=== PATIENT | male | born 1965 | race Caucasian/White ===

== ENCOUNTER → 2023-08-10 14:14 | Outpatient (REF) | payer OTHER, SELFPAY | LOC: HWRAD 14:14 | PROVIDERS: ATTENDING PHYSICIAN Internal Medicine Critical Care Medicine; FAMILY PHYSICIAN Internal Medicine | DX: Z87.891 Personal history of nicotine dependence (principal); R91.8 Other nonspecific abnormal finding of lung field | CPT/HCPCS: 71250 ==

== ENCOUNTER 2023-10-12 08:07 | Emergency (ER) | payer OTHER, SELFPAY ==
[2023-10-12 08:12] VITALS: BP 166/86
--- NOTE | 2023-10-12 08:26 | ED.GENMED ---
History of Present Illness
General
Chief Complaint: Abdominal Pain
Source: patient
Exam Limitations: none
Time Seen by Provider: 10/12/23 08:26
Nursing documentation reviewed up to this point in time: agreed with
History of Present Illness
History of Present Illness:
58-year-old male with history of COPD, CAD, HTN, HLD, PUD, IDDM, cardiac cath 2018, bypass surgery 2019 presents stating since yesterday afternoon has had gradually worsening epigastric to RUQ pain, nausea, vomited 3 times then dry heaves 10 minutes
ago. Pain 7/10, sharp to aching. Denies fever or chills. Denies constipation. Denies UTI symptoms. On Eliquis, notes no change in color of stool
Past History
Past History
ED Past Medical History: Hypercholesterolemia, IDDM and Other (History of pneumonia, PUD)
ED Past Surgical History: Cardiac (CABG) and Other (Patient has a history of having had a colonoscopy)
Social History
Tobacco: Former smoker (Occasional cigar)
Alcohol: Occasional
Drug: None
Personal:
Living: with family
Employment: Employed
Family History
Family History: Negative Early CAD
Review of Systems
Review of Systems
Allergies reviewed?: Yes
All Other Systems: ROS reviewed and negative except as documented in HPI and ROS
Constitutional: Denies fever or chills
Respiratory: Denies trouble breathing
Cardiac: Denies chest pain
ABD/GI: Reports abdominal pain, nausea and vomiting; Denies diarrhea, constipated, bloody stools or black stools
: Denies dysuria or difficulty voiding
Musculoskeletal: Reports no symptoms
Skin: Reports no symptoms
Neurological: Reports no symptoms
Phy Exam
Physical Exam
Physical Exam:
GENERAL: No acute distress. A&Ox3.
CONSTITUTIONAL: Afebrile.
EYES: clear, conjunctivae normal
ENMT: moist mucus membranes, Pharynx nl
RESPIRATORY: Regular respirations, nonlabored, lungs clear.
CARDIOVASCULAR: Regular rate and rhythm, no murmurs, no rubs.
GI: Soft, rotund, mild tenderness epigastric to RUQ, normal BS
MUSCULOSKELETAL: Moves with ease. Well perfused.
SKIN: Warm, dry, pink
PSYCH: Normal mood and affect. Well kept, interactive and appropriate
NEUROLOGIC: Awake, alert and oriented. No focal neurological deficits
Course
Orders/Labs/Results
Orders:
Orders
10/12/23 08:10
EKG [Electrocardiogram (*1)] Urgent
Reason for Study: Chest Pain
10/12/23 08:11
EKG- Treatment ONCE
10/12/23 08:51
HYDROmorphone [Dilaudid] 1 mg IV NOW STA
Ondansetron Injectable [Zofran] 4 mg IV NOW STA
10/12/23 08:52
US Abdomen Complete/Upper Urgent
Comment:
Reason For Exam: Mid to RUQ abd pain, n/v
10/12/23 08:53
0.9% Sodium Chloride 1000 ml [Nss] 1,000 ml IV BOLUS
10/12/23 09:03
Complete Blood Count/With Diff Urgent
Comprehensive Metabolic Panel Urgent
Lipase Urgent
10/12/23 10:08
CT Abd/Pel (IV only)-DH only Urgent
Comment:
Reason For Exam: mid to RUQ abd pain, neg US
Abnormal Lab Results
10/12/23
09:03
MCH 31.9 H pg
(27.0-31.0)
Glucose 143 H mg/dl
(70-99)
ALT 61 H U/L
(0-50)
10/12/23 09:03
10/12/23 09:03
Vital Signs
Initial and Last Documented VS:
Initial Vital Signs
Temp Pulse Resp BP Pulse Ox
97.5 F 67 18 166/86 96
10/12/23 08:12 10/12/23 08:12 10/12/23 08:12 10/12/23 08:12 10/12/23 08:12
Last Documented Vital Signs
Temp Pulse Resp BP Pulse Ox
97.5 F 61 16 134/60 93
10/12/23 08:12 10/12/23 11:15 10/12/23 11:15 10/12/23 11:00 10/12/23 11:15
MDM/Problems Addressed
Differential Diagnosis Includes:
PUD, GERD, gastritis, cholecystitis, biliary colic
MDM/Problems Addressed:
58-year-old male with history of COPD, CAD, HTN, HLD, PUD, IDDM, cardiac cath 2018, bypass surgery 2019 presents stating since yesterday afternoon has had gradually worsening epigastric to RUQ pain, nausea, vomited 3 times then dry heaves 10 minutes
ago. Pain 7/10, sharp to aching. Denies fever or chills. Denies constipation. Denies UTI symptoms.
On Eliquis, notes no change in color of stool
10:45 AM
CBC normal
CMP unremarkable
Lipase normal
Upper abdominal ultrasound radiology report read: Normal
11:15 AM
Patient is pain-free after pain medications and IV fluids.
CT abdomen pelvis with IV only contrast: Radiology report read: IMPRESSION:
1). Evaluation for bowel pathology is limited by the lack of enteric contrast
There is mild low-density bowel wall thickening in the transverse colon suggesting possible colitis
There are no areas of pericolonic inflammatory stranding.
2). Atherosclerosis
Plan: treat for colitis: Augmentin 875 mg BID sent to his pharmacy
He stopped his Omeprazole 'a while ago' and just started it up again yesterday.
Instructed to continue to take it daily
He has a GI doctor here at he will follow up with
Pt ambulated out with normal gait at discharge
*EKG
EKG Intrepretation Date: 10/12/23
Interpretation: normal
Rate: normal
Rhythm: sinus
[place]: normal axis
Interval: normal interval
QRS Pattern: normal QRS
Ischemia: non-specific ST changes
*Critical Care Note
Total Time (30-74mins, 75-104mins- exclusive of procedures): Not Applicable
ED Attending Note
-
Portions of this chart may have been created with voice recognition software.� Occasional wrong word or��sound alike� substitutions may have occurred due to the inherent limitations of voice recognition software.
Discharge Plan
Departure
Patient Disposition: Home (Routine Discharge)
Date of Disposition: 10/12/23
Time of Disposition: 11:21
Patient with high blood pressure during this ER visit?: No
Condition: Good
Discharge Problem:
Abdominal pain, Colitis
Instructions: Colitis, Abdominal Pain
Prescriptions:
New
amoxicillin-pot clavulanate 875-125 mg tablet
1 tab PO BID Qty: 20 0RF
tramadol 50 mg tablet
50 mg PO Q8H PRN (Reason: Pain) Qty: 7 0RF
No Action
omeprazole 20 MG capsule,delayed release(DR/EC)
20 mg PO DAILY
metformin 500 MG tablet
1,000 mg PO BID
Eliquis 5 mg tablet
5 mg PO BID Qty: 60 0RF
metoprolol tartrate [Lopressor] 50 mg tablet
50 mg PO BID Qty: 60 0RF
ascorbic acid (vitamin C) [Vitamin C] 1,000 mg Tablet
1 g PO TID
ramipril 10 mg Capsule
10 mg PO NOON
ezetimibe 10 mg Tablet
10 mg PO NOON
insulin aspart U-100 [Novolog FlexPen U-100 Insulin] 100 unit/mL (3 mL) Insulin Pen
0 sliding scale dose SC AC
Patient Comments:
10/12/23: patient unsure of sliding scale
rosuvastatin 40 mg Tablet
40 mg PO HS
insulin glargine [Lantus Solostar U-100 Insulin] 100 unit/mL (3 mL) Insulin Pen
25 unit SC HS
omega 8-hmo-nki-fish oil [Fish Oil] 1,200 (144-216) mg Capsule
2 cap PO BID
Anoro Ellipta 62.5-25 mcg/actuation Blister With Device
1 inh INHALATION R DAILY
Vitamin D3 tablet
1 tab PO TID
acetaminophen 325 MG tablet
650 mg PO BIDPRN PRN (Reason: mild pain,headache,temp >101F )
Referrals:
Olman Teresa I., [Family Provider] -
Olman Villalobos MD [Active] -
Activity Restrictions/Additional Instructions:
As we discussed, your CAT scan shows that you have colitis
I sent a prescription to your pharmacy for Augmentin to take twice a day for 10 days
Call your GI doctors office and make an appointment for sometime within the next 2 weeks.
Continue your Omeprazole daily.
Use your Tramadol if needed for significant pain.
Interventions
Interventions:
*Risk Screen - Suicide Last Done: 10/12/23 08:56
*General Assessment Last Done: 10/12/23 08:12
*Neglect/Abuse Screening Last Done: 10/12/23 08:56
ED- Fall Risk Assessment Last Done: 10/12/23 09:13
*ED COVID-19 Vaccine History Last Done: 10/12/23 08:12
*Nursing Disposition Last Done: 10/12/23 11:52
JM-Ugaayk-Jqhfenvkkw Assessment Last Done: 10/12/23 09:13
Discharge Date and Time
Discharge Date/Time: 10/12/23 11:52
Print Language: FRISIAN
[2023-10-12 08:55] VITALS: BMI 31.2
[2023-10-12 08:58] VITALS: BP 189/74
[2023-10-12] MEDS: NSS 1000 IV (09:04)
[2023-10-12] MEDS: DILAUDID 1 MG IV (09:05)
[2023-10-12] MEDS: ZOFRAN 4 MG IV (09:05)
[2023-10-12 09:17] LABS: % Basophils 0.6 % (0-2); % Immature Granulocytes 0.1 % (0-0.5); % Lymphocytes 25.1 % (20.5-51.1); % Monocytes 6.9 % (1.7-9.3); % Neutrophils 65.3 % (42.2-75.2); Absolute Eosinophils 0.1 10^3/uL (0-0.7); Absolute Lymphocytes 1.7 10^3/uL (1.2-3.4); Absolute Monocytes 0.5 10^3/uL (0.1-0.6); Absolute Neutrophils 4.5 10^3/uL (1.4-6.5); Hematocrit 41.4 % (39.0-52.0); Mean Corp Hgb Conc. 36.2 g/dL (33.0-37.0); Mean Corpuscular Hgb 31.9 pg (27.0-31.0); Mean Corpuscular Volume 88.1 fL (80.0-94.0); Mean Platelet Volume 8.8 fL (7.4-10.4); Nucleated Red Blood Cells % 0 % (-); Platelet Count 213 10^3/uL (130-400); Red Cell Dist. Width 11.7 % (11.5-14.5); White Blood Cell Count 6.9 10^3/uL (4.8-10.8)
[2023-10-12 09:40] LABS: ALT (SGPT) 61 U/L (0-50); AST (SGOT) 38 U/L (17-59); Albumin 4.4 g/dl (3.5-5.0); Alkaline Phosphatase 60 U/L (38-126); Blood Urea Nitrogen 19 mg/dl (9-20); Calcium 9.3 mg/dl (8.4-10.2); Carbon Dioxide 24 mmol/L (22-30); Chloride 105 mmol/L (98-107); Estimated Creatinine Clearance 120 ml/min; Glucose 143 mg/dl (70-99); Lipase 63 U/L (23-300); Potassium 4.7 mmol/L (3.5-5.1); Sodium 139 mmol/L (135-145); Total Bilirubin 0.7 mg/dl (0.2-1.3); Total Protein 6.8 g/dl (6.3-8.2); eGFR > 60.00
[2023-10-12 10:02] VITALS: BP 123/51
[2023-10-12 11:00] VITALS: BP 134/60
== END 2023-10-12 11:52 | disposition home or self-care (01) ==
LOC: EMR 08:07
PROVIDERS: Registered Nurse; EMERGENCY PHYSICIAN Emergency Medicine; FAMILY PHYSICIAN Internal Medicine
DX: R10.11 Right upper quadrant pain (principal); K52.9 Noninfective gastroenteritis and colitis, unspecified
CPT/HCPCS: 99285; 96374; 96375; 96361; 74177; 76700; 80053; 83690; 85025; 93005; Q9967

== ENCOUNTER 2023-10-16 19:59 | Observation (INO) | payer OTHER, SELFPAY ==
[2023-10-16] VITALS (14 sets, daily range): BP systolic 109–193; BP diastolic 44–86; BMI 30.5
[2023-10-16 11:20] LABS: % Basophils 0.6 % (0-2); % Eosinophils 2.5 % (0-6); % Immature Granulocytes 0.3 % (0-0.5); % Lymphocytes 25.7 % (20.5-51.1); % Monocytes 7.3 % (1.7-9.3); % Neutrophils 63.6 % (42.2-75.2); Absolute Eosinophils 0.2 10^3/uL (0-0.7); Absolute Lymphocytes 1.6 10^3/uL (1.2-3.4); Absolute Monocytes 0.5 10^3/uL (0.1-0.6); Hematocrit 41.9 % (39.0-52.0); Hemoglobin 15.2 g/dL (13.0-18.0); Mean Corp Hgb Conc. 36.3 g/dL (33.0-37.0); Mean Corpuscular Hgb 31.7 pg (27.0-31.0); Mean Corpuscular Volume 87.3 fL (80.0-94.0); Mean Platelet Volume 8.8 fL (7.4-10.4); Nucleated Red Blood Cells % 0 % (-); Platelet Count 223 10^3/uL (130-400); Red Cell Dist. Width 11.8 % (11.5-14.5); White Blood Cell Count 6.3 10^3/uL (4.8-10.8)
[2023-10-16 11:40] LABS: Troponin I < 0.012 ng/ml
[2023-10-16 11:50] LABS: ALT (SGPT) 54 U/L (0-50); AST (SGOT) 40 U/L (17-59); Albumin 4.6 g/dl (3.5-5.0); Alkaline Phosphatase 67 U/L (38-126); Blood Urea Nitrogen 18 mg/dl (9-20); Calcium 9.8 mg/dl (8.4-10.2); Carbon Dioxide 21 mmol/L (22-30); Chloride 103 mmol/L (98-107); Glucose 143 mg/dl (70-99); Lipase 72 U/L (23-300); Potassium 4.6 mmol/L (3.5-5.1); Sodium 138 mmol/L (135-145); Total Bilirubin 0.7 mg/dl (0.2-1.3); eGFR > 60.00
--- NOTE | 2023-10-16 12:19 | ED.GENMED ---
History of Present Illness
<Radha Wills PA-C - Last Filed: 10/16/23 19:01>
General
Chief Complaint: Chest Pain
Source: patient
Exam Limitations: none
Time Seen by Provider: 10/16/23 11:39
Nursing documentation reviewed up to this point in time: agreed with
History of Present Illness
History of Present Illness:
58-year-old male with a past medical history of insulin-dependent diabetes, COPD, coronary artery disease, hypertension, hyperlipidemia presenting to the emergency department today with epigastric pain and right upper quadrant pain that started this
morning. Patient states that he was seen here in our ER 4 days ago for the same exact symptoms and got a CT scan and right upper quadrant ultrasound and was diagnosed with colitis. He was put on a course of Augmentin. He had been on this for a
few days and started to feel better, however then he took a turn for the worse and states that all symptoms came back very severe today and states that they feel exactly like how they did 4 days ago except now significantly worse. Patient states
that he is so uncomfortable that is hard for him to talk, walk, and he has nausea and vomiting associated with this. Patient denies any constipation or diarrhea. Patient denies chest pain or shortness of breath. Patient he has fevers or chills.
Patient did not try thing at home for the pain since he had so much vomiting. Patient does take Eliquis, he denies melena. He denies any back or flank pain.
Past History
<Radha Wills PA-C - Last Filed: 10/16/23 19:01>
Past History
ED Past Medical History: Hypercholesterolemia, IDDM and Other (History of pneumonia, PUD)
ED Past Surgical History: Cardiac (CABG) and Other (Patient has a history of having had a colonoscopy)
Social History
Tobacco: Former smoker (Occasional cigar)
Alcohol: Occasional
Drug: None
Personal:
Living: with family
Employment: Employed
Family History
Family History: Negative Early CAD
Review of Systems
<Radha Wills PA-C - Last Filed: 10/16/23 19:01>
Review of Systems
All Other Systems: ROS reviewed and negative except as documented in HPI and ROS
Phy Exam
<Radha Wills PA-C - Last Filed: 10/16/23 19:01>
Physical Exam
Physical Exam:
General: Patient is well appearing and in no acute distress; non-toxic
Skin: Warm and dry, no rashes or lesions
Head: Normocephalic, atraumatic
Eyes: Sclera non-icteric. EOMs intact. PERRLA.
Cardiac: Bradycardia otherwise regular rhythm, no murmurs
Peripheral Vascular: No lower extremity swelling or edema
Pulm: Normal respiratory effort, no wheezes, rales, or rhonchi
Abdomen: Significant RUQ tenderness to palpation with guarding. No rebound tenderness. No pulsatile abdominal mass.
Neuro: CN II-XII intact, no focal neurologic deficits.
Psychiatric: Appropriate mood and affect.
Scores
<Radha Wills PA-C - Last Filed: 10/16/23 19:01>
Heart Score for Chest Pain Patients
STEMI patient?: No
History: Slightly or Non-Suspicious
ECG: Normal
Age: >45 - <65 years
Risk Factors: No Risk Factors
Troponin: </= Normal Limit
Heart Score for Chest Pain Patients: 1
Heart Score Risk: 2.5% MACE over next 6 weeks
<Afshin Benz MD - Last Filed: 10/16/23 22:11>
Heart Score for Chest Pain Patients
Heart Score for Chest Pain Patients: 1
Heart Score Risk: 2.5% MACE over next 6 weeks
Course
<Radha Wills PA-C - Last Filed: 10/16/23 19:01>
Orders/Labs/Results
Orders:
Orders
10/16/23 10:55
Electrocardiogram (*1) Urgent
Reason for Study: Chest Pain
EKG- Treatment ONCE
10/16/23 11:01
Complete Blood Count/With Diff Urgent
Comprehensive Metabolic Panel Urgent
Lipase Urgent
Troponin I Urgent
10/16/23 12:29
Ondansetron Injectable [Zofran] 4 mg .ROUTE .STK-MED ONE
10/16/23 12:33
HYDROmorphone [Dilaudid] 0.5 mg IV NOW STA
Iohexol [Omnipaque] See Protocol PO NOW STA
10/16/23 12:34
CT Abd/pel W Iv And Oral Contr Urgent
Comment:
Reason For Exam: severe worsening of RUQ pain, known colitis
10/16/23 13:07
HYDROmorphone [Dilaudid] 0.5 mg IV NOW STA
10/16/23 16:07
US Abdomen Limited Urgent
Comment:
Reason For Exam: RUQ pain
10/16/23 17:57
Acetaminophen [Tylenol] 1,000 mg PO NOW STA
10/16/23 19:34
Admit/Transfer Patient As Directed
Co-Sign Provider:
Level of Care: Observation services
Assign to:: Medical/Surgical
Physician / Group: htay
Diagnosis: acute abdominal pain with N/V
10/16/23 19:35
Code Status As Directed
Resuscitation Status: Full Code
10/16/23 20:10
0.9% Sodium Chloride 1000 ml [Nss] 1,000 ml IV 80 mls/hr
Acetaminophen [Tylenol] 650 mg PO Q4HPRN PRN
Bisacodyl [Dulcolax] 10 mg RECTAL [id number] PRN
Dextrose 50%-Water [Dextrose 50% Syringe] 12.5 grams IV [id number] PRN
Docusate W/Senna [Senokot-S] 1 tablet PO BIDPRN PRN
Glucagon [GlucaGen] 1 mg IM PRN PRN
Ketorolac [Toradol] 10 mg IV Q6HPRN PRN
Ondansetron Injectable [Zofran] 4 mg IV Q6HPRN PRN
Polyethylene Glycol Powder [Miralax] 17 grams PO DAILYPRN PRN
10/16/23 20:10
Activity As Directed
Activity Level: With Assistance
Bedside Glucose Monitoring As Directed
Frequency: AC&HS
Additional Instructions:: Change to q6h if pt on TPN, tube feeding or not eating
Intake/ Output As Directed
Frequency: Per unit guidelines
Pneumatic Compression Sleeves As Directed
Type: Knee high
Vital Signs As Directed
Frequency: Per unit guidelines
DX Deep Vein Thrombosis Video Routine
10/17/23 Breakfast
Clear Liquid
At Your Request: Full Participation
Comment: advance diet as tolerates
Complete Blood Count/No Diff IN AM
Comprehensive Metabolic Panel IN AM
Glycohemoglobin (HgbA1c) IN AM
10/17/23 07:30
Insulin Aspart Corrective Low [Novolog Flexpen-Low Resistance] See Protocol SC AC
Abnormal Lab Results
10/16/23
11:01
MCH 31.7 H pg
(27.0-31.0)
Carbon Dioxide 21 L mmol/L
(22-30)
Glucose 143 H mg/dl
(70-99)
ALT 54 H U/L
(0-50)
10/16/23 11:01
10/16/23 11:01
Vital Signs
Initial and Last Documented VS:
Initial Vital Signs
Temp Pulse Resp BP Pulse Ox
97.8 F 54 18 188/86 97
10/16/23 10:52 10/16/23 10:52 10/16/23 10:52 10/16/23 10:52 10/16/23 10:52
Last Documented Vital Signs
Temp Pulse Resp BP Pulse Ox
98.2 F 61 19 127/59 94
10/16/23 15:52 10/16/23 19:45 10/16/23 19:45 10/16/23 19:00 10/16/23 18:45
<Afshin Benz MD - Last Filed: 10/16/23 22:11>
Orders/Labs/Results
Orders:
Orders
10/16/23 10:55
Electrocardiogram (*1) Urgent
Reason for Study: Chest Pain
EKG- Treatment ONCE
10/16/23 11:01
Complete Blood Count/With Diff Urgent
Comprehensive Metabolic Panel Urgent
Lipase Urgent
Troponin I Urgent
10/16/23 12:29
Ondansetron Injectable [Zofran] 4 mg .ROUTE .STK-MED ONE
10/16/23 12:33
HYDROmorphone [Dilaudid] 0.5 mg IV NOW STA
Iohexol [Omnipaque] See Protocol PO NOW STA
10/16/23 12:34
CT Abd/pel W Iv And Oral Contr Urgent
Comment:
Reason For Exam: severe worsening of RUQ pain, known colitis
10/16/23 13:07
HYDROmorphone [Dilaudid] 0.5 mg IV NOW STA
10/16/23 16:07
US Abdomen Limited Urgent
Comment:
Reason For Exam: RUQ pain
10/16/23 17:57
Acetaminophen [Tylenol] 1,000 mg PO NOW STA
10/16/23 19:34
Admit/Transfer Patient As Directed
Co-Sign Provider:
Level of Care: Observation services
Assign to:: Medical/Surgical
Physician / Group: htay
Diagnosis: acute abdominal pain with N/V
10/16/23 19:35
Code Status As Directed
Resuscitation Status: Full Code
10/16/23 20:10
0.9% Sodium Chloride 1000 ml [Nss] 1,000 ml IV 80 mls/hr
Acetaminophen [Tylenol] 650 mg PO Q4HPRN PRN
Bisacodyl [Dulcolax] 10 mg RECTAL [id number] PRN
Dextrose 50%-Water [Dextrose 50% Syringe] 12.5 grams IV [id number] PRN
Docusate W/Senna [Senokot-S] 1 tablet PO BIDPRN PRN
Glucagon [GlucaGen] 1 mg IM PRN PRN
Ketorolac [Toradol] 10 mg IV Q6HPRN PRN
Ondansetron Injectable [Zofran] 4 mg IV Q6HPRN PRN
Polyethylene Glycol Powder [Miralax] 17 grams PO DAILYPRN PRN
10/16/23 20:10
Activity As Directed
Activity Level: With Assistance
Bedside Glucose Monitoring As Directed
Frequency: AC&HS
Additional Instructions:: Change to q6h if pt on TPN, tube feeding or not eating
Intake/ Output As Directed
Frequency: Per unit guidelines
Pneumatic Compression Sleeves As Directed
Type: Knee high
Vital Signs As Directed
Frequency: Per unit guidelines
DX Deep Vein Thrombosis Video Routine
10/17/23 Breakfast
Clear Liquid
At Your Request: Full Participation
Comment: advance diet as tolerates
Complete Blood Count/No Diff IN AM
Comprehensive Metabolic Panel IN AM
Glycohemoglobin (HgbA1c) IN AM
10/17/23 07:30
Insulin Aspart Corrective Low [Novolog Flexpen-Low Resistance] See Protocol SC AC
Abnormal Lab Results
10/16/23
11:01
MCH 31.7 H pg
(27.0-31.0)
Carbon Dioxide 21 L mmol/L
(22-30)
Glucose 143 H mg/dl
(70-99)
ALT 54 H U/L
(0-50)
10/16/23 11:01
10/16/23 11:01
Vital Signs
Initial and Last Documented VS:
Initial Vital Signs
Temp Pulse Resp BP Pulse Ox
97.8 F 54 18 188/86 97
10/16/23 10:52 10/16/23 10:52 10/16/23 10:52 10/16/23 10:52 10/16/23 10:52
Last Documented Vital Signs
Temp Pulse Resp BP Pulse Ox
98.2 F 61 19 127/59 94
10/16/23 15:52 10/16/23 19:45 10/16/23 19:45 10/16/23 19:00 10/16/23 18:45
[place];Radha Wills PA-C - Last Filed: 10/16/23 19:01>
MDM/Problems Addressed
Differential Diagnosis Includes:
ddx include gastritis, cholelithiasis, choledocholithiasis, pancreatitis, perforated viscus, duodenitis
MDM/Problems Addressed:
Abdominal Pain:
58-year-old male with a past medical history of insulin-dependent diabetes, COPD, coronary artery disease, hypertension, hyperlipidemia presenting to the emergency department today with epigastric pain and right upper quadrant pain that started this
morning. Patient states that he was seen here in our ER 4 days ago for the same exact symptoms and got a CT scan and right upper quadrant ultrasound and was diagnosed with colitis. Symptoms initially seem to get better but now they came back and
much worse. CT scan demonstrates thickening of the gall bladder which prompted US which demonstrated biliary sludge. Considering abnormal new CT findings, persistent pain, change in CT, will refer to admission for further evaluation and care.
Chronic conditions affecting care:
Insulin dependent diabetes, COPD, coronary artery disease, hypertension, hyperlipidemia
Acute Exacerbation and/or Progression of Chronic Illness:
COPD, coronary artery disease, hypertension, hyperlipidemia
<Radha Wills PA-C - Last Filed: 10/16/23 19:01>
*Pulse Oximetry
Patient hypoxic: no
*EKG
Interpreted by ED Provider?: Yes
EKG Intrepretation Date: 10/16/23
Interpretation: abnormal
Comparison EKG: no changes
Heart Rate: 53
Rate: bradycardiac
Rhythm: sinus
[place]: normal axis
Interval: normal interval, normal QT interval and normal SC interval
QRS Pattern: normal QRS
*Critical Care Note
Total Time (30-74mins, 75-104mins- exclusive of procedures): Not Applicable
Data Reviewed
Review of Other/Old Records Reveals: Records (Reviewed ER physician documentation from 10/12/2023) and Discharge Summary (reviewed discharge summary from 05/03/19)
Source: patient and records
<Radha Wills PA-C - Last Filed: 10/16/23 19:01>
Patient Management
Escalation/DeEscalation of care consider admission/obs:
Reviewed case and treatment plan with my attending Dr. Benz and Dr. Andres
ED Attending Note
<Radha Wills PA-C - Last Filed: 10/16/23 19:01>
-
Portions of this chart may have been created with voice recognition software.� Occasional wrong word or��sound alike� substitutions may have occurred due to the inherent limitations of voice recognition software.
<Afshin Benz MD - Last Filed: 10/16/23 22:11>
ED Attending Note
ED Attending Note:
Pt diagnosed with colitis in ED 4 days ago and started on Augment, presents to ED secondary to persistent, intermittent abdominal pain along with multiple vomiting episodes. Denies fever/chills. Abdominal pain described as sharp, nonradiating,
without alleviating/exacerbating factors. Denies trauma. Denies difficulty with urination.
General: well nourished male, in mild painful distress. afebrile.
Heent: nc/at. eomi
Lungs: cta
Heart: rrr. no murmur
Abd: soft with mild epigstric tenderness to palpation.
Neuro: aao x 3. no focal neurological deficit.
Skin: no rash.
Psych: pleasant and cooperative.
CT abd/pel and abdominal US reviewed. Pt will be admitted due to ongoing symptoms. May benefit from surgical/GI consultation, along with continual pain management and IVF.
Discharge Plan
Departure
Patient Disposition: Admit
Date of Disposition: 10/16/23
Time of Disposition: 18:56
Admit to: Med/Surg
Presentation/result/management discussed w/ accepting MD/DO: Hospitalist
Patient with high blood pressure during this ER visit?: Yes
Condition: Fair
Discharge Problem:
Abdominal pain
Interventions
Interventions:
*Risk Screen - Suicide Last Done: 10/16/23 20:23
*General Assessment Last Done: 10/16/23 10:52
*Neglect/Abuse Screening Last Done: 10/16/23 13:07
ED- Fall Risk Assessment Last Done: 10/16/23 13:05
*ED COVID-19 Vaccine History Last Done: 10/16/23 20:23
*Nursing Disposition Last Done: 10/16/23 20:14
ED- Cardiac Assessment Last Done: 10/16/23 13:05
Discharge Date and Time
Discharge Date/Time: 10/16/23 20:14
[2023-10-16] MEDS: DILAUDID 0.5 MG IV ×2 (12:41→13:10)
[2023-10-16] MEDS: OMNIPAQUE 50 ML PO (12:41)
[2023-10-16] MEDS: TYLENOL 1000 MG PO (18:00)
--- NOTE | 2023-10-16 19:26 | HPS.HSE ---
Family Physician
-
Family Physician: Olman Teresa
Chief Complaint
-
recurrent abdominal pain
History of Present Illness
58M HX IDDM, COPD, CAD, HTN, on Eliquis seen at ER for eval abdominal pain
- onset 4 days ago and resolved
- seen at ER had CT scan and right upper quadrant ultrasound and was diagnosed with colitis. was DC'd
- retuned to ER with acute recurrent epigastric pain and right upper quadrant pain that started this morning.
- denied fever
- assoc with N/V
- POS nausea and vomiting
- denied hematemesis and melena
- denied contact exposures
- work out side for Septa
At ER:
afebrile , nl WCC, nl TB
See repeat US and CT report
Medical History
Past Medical History
Past Medical History: Reports HTN, Hypercholesterolemia and IDDM
Past Surgical History: Reports Cardiac (CABG )
Social History
Tobacco: Former Smoker (occcasinal cigar )
Alcohol: Occasional
Personal:
Living: With Family
Family History
Family History: Not pertinent
Allergies / Home Medications
Allergies reflects when Allergies were last updated in [facility].
Home Medications with original date entered in [facility]
Allergy/Medication List:
Allergies
Allergy/AdvReac Type Severity Reaction Status Date / Time
No Known Allergies Allergy Verified 10/16/23 10:55
Home Medications
omeprazole 20 mg capsule,delayed release 20 mg PO DAILY 04/04/19
metformin 500 mg tablet 1,000 mg PO BID 06/18/21
apixaban 5 mg tablet (Eliquis) 5 mg PO BID #60 tabs 02/07/22
metoprolol tartrate 50 mg tablet (Lopressor) 50 mg PO BID #60 tabs 02/07/22
acetaminophen 325 mg tablet 650 mg PO BIDPRN PRN mild pain,headache,temp >101F 10/12/23
amoxicillin 875 mg-potassium clavulanate 125 mg tablet 1 tab PO BID #20 tabs 10/12/23
ascorbic acid (vitamin C) 1,000 mg tablet (Vitamin C) 1 g PO TID 10/12/23
cholecalciferol (vitamin D3) 25 mcg (1,000 unit) tablet (Vitamin D3) 25 mcg PO TID 10/12/23
ezetimibe 10 mg tablet 10 mg PO NOON 10/12/23
insulin aspart U-100 100 unit/mL (3 mL) subcutaneous pen (Novolog FlexPen U-100 Insulin aspart) 0 sliding scale dose SC AC 10/12/23
insulin glargine 100 unit/mL (3 mL) subcutaneous pen (Lantus Solostar U-100 Insulin) 25 unit SC HS 10/12/23
omega 9-fto-gyh-fish oil 1,200 mg (144 mg-216 mg) capsule (Fish Oil) 2 cap PO BID 10/12/23
ramipril 10 mg capsule 10 mg PO NOON 10/12/23
rosuvastatin 40 mg tablet 40 mg PO HS 10/12/23
umeclidinium 62.5 mcg-vilanterol 25 mcg/actuation powdr for inhalation (Anoro Ellipta) 1 inh inhalation R DAILY 10/12/23
tramadol 50 mg tablet 50 mg PO Q8H PRN moderate pain 10/16/23
Review of Systems
-
Constitutional: Reports No Symptoms
EENT: Reports No Symptoms
Respiratory: Reports No Symptoms
Cardiac: Reports No Symptoms
Abdomen/GI: Reports Abdominal Pain, Nausea and Vomiting; Denies Diarrhea, Constipated, Bloody Stools or Black Stools
: Reports No Symptoms
Musculoskeletal: Reports No Symptoms
Skin: Reports No Symptoms
Neurological: Reports No Symptoms
Endocrine: Reports No Symptoms
Hematologic/Lymphatic: Reports No Symptoms
Psych: Reports No Symptoms
Physical Exam
Vital Signs
Vital Signs
Temp Pulse Resp BP Pulse Ox
98.2 F 57 14 126/63 95
10/16/23 15:52 10/16/23 18:35 10/16/23 18:35 10/16/23 18:35 10/16/23 18:35
Physical Exam
General: Well Developed, Well Nourished, Appears in Distress and Pain (mild upper abdominal pain )
HEENT: NormoCephalic, Moist mucous membranes and Atraumatic
Respiratory: Clear
Cardiac: S1/S2 and Regular Rhythm; No Murmur or Rub
GI: Soft, Non Distended, Normal Bowel Sounds and Tender ( RUQ tenderness to palpation,no guarding No rebound tenderness.); No Organomegaly
Rectal: Deferred by Provider
Musculoskeletal: No Clubbing, No Cyanosis and No Edema
Skin: Warm; No Rash
Neuro: AO x 3 and Nonfocal/grossly intact
Psych: Calm
Laboratory Results
-
10/16/23 11:01
10/16/23 11:01
Laboratory Results
Total Bilirubin 0.7 mg/dl (0.2-1.3) 10/16/23 11:01
AST 40 U/L (17-59) 10/16/23 11:01
ALT 54 U/L (0-50) H 10/16/23 11:01
Alkaline Phosphatase 67 U/L (38-126) 10/16/23 11:01
Troponin I < 0.012 ng/ml 10/16/23 11:01
Lipase 72 U/L (23-300) 10/16/23 11:01
Data Reviewed
-
CT Scan: Report Reviewed by me
Ultrasound: Report Reviewed by me
Lab Data: Labs Reviewed by me
Old Records: Reviewed
Impression/Plan
-
Reviewed VS: Afebrile otherwise unremarkable
Data
WCC 6.3
CO2 21
BG 143
TB 0.7
nl AST ALT 54 nl AKP
nl Lipase
10/16/23 US Abdomen Limited
1. Trace gallbladder sludge without sonographic evidence for discrete gallstones or acute cholecystitis.
10/16/23 CT Abd/pel W Iv And Oral Contr
1. Gallbladder is mildly dilated, with mild gallbladder wall thickening. No radiopaque stones are seen. If there is clinical concern for cholecystitis, abdominal ultrasound may be helpful. Recent abdominal ultrasound dated 10/12/2023 demonstrated no
significant sonographic abnormalities.
2. No evidence of intestinal obstruction, bowel inflammatory process, nephrolithiasis, hydronephrosis, or abscess formation.
ASSESSMENT & PLAN
Pending Rx reconciliation
Recurrent abdominal pain with N/V : afebrile , nl WCC, nl TB, nl lipase DDX: acute gastritis ? infective ( viral )
So no suggest trace gallbladder sludge WITHOUT sonographic evidence for discrete gallstones or acute cholecystitis.
CT suggest mild GBWT. No SBO, nephrolithiasis, hydronephrosis, or abscess
- Hemodynamically stable
- observation
- clear diet and ADAT
- IVF
- Anti emetics
- held ABx for now
- serial abdo exam
- trend CBC and CMP
- GI consult in AM
HX Prx AF
HX quadruple CABG
- held eliquis for now
IDDM
- Held Metformin
- Lantus [address] of 25 HS
- held Novolog
- add ISS
Essential HTN
- held ramipril
- cont Metoprolol
HLD
- held Ezetimibe
DVT Px: SCD
Code: Full code
Obs
[2023-10-16] MEDS: NSS 1000 IV (21:14)
[2023-10-16] MEDS: LANTUS 0.100000000000000006 UNITS SC (21:55)
[2023-10-16 21:56] LABS: Glucose - Point of Care 227 mg/dl (70-99)
--- NOTE | 2023-10-16 22:44 | PTCARENOTE ---
Pt admitted to [facility] and walked from stretcher to bed w/ steady gait. Pt aaox3, VSS, and no current c/o pain or nausea. NSS @80mls/hr started and going into RAC. Pt oriented to room, call owens within reach, and plan of care ongoing.
[2023-10-17 05:45] LABS: Hematocrit 40.6 % (39.0-52.0); Hemoglobin 14.5 g/dL (13.0-18.0); Mean Corp Hgb Conc. 35.7 g/dL (33.0-37.0); Mean Corpuscular Hgb 31.6 pg (27.0-31.0); Mean Corpuscular Volume 88.5 fL (80.0-94.0); Platelet Count 190 10^3/uL (130-400); Red Blood Cell Count 4.59 10^6/uL (4.70-6.10); Red Cell Dist. Width 11.8 % (11.5-14.5); White Blood Cell Count 6.2 10^3/uL (4.8-10.8)
[2023-10-17 06:16] LABS: ALT (SGPT) 39 U/L (0-50); AST (SGOT) 26 U/L (17-59); Albumin 3.9 g/dl (3.5-5.0); Alkaline Phosphatase 57 U/L (38-126); Blood Urea Nitrogen 12 mg/dl (9-20); Calcium 9.1 mg/dl (8.4-10.2); Carbon Dioxide 29 mmol/L (22-30); Chloride 103 mmol/L (98-107); Estimated Creatinine Clearance 119 ml/min; Glucose 94 mg/dl (70-99); Sodium 139 mmol/L (135-145); Total Bilirubin 0.5 mg/dl (0.2-1.3); Total Protein 6.1 g/dl (6.3-8.2); eGFR > 60.00
[2023-10-17 07:00] VITALS: BP 145/59
[2023-10-17] MEDS: DILAUDID 0.5 MG IV (07:03)
--- NOTE | 2023-10-17 08:10 | W.PN.HOSP.TC ---
Today's Communication/Plan
-
see bold
Assessment / Plan
Assessment / Plan
Gen: NAD, AAOx3.
Eyes: EOMI, PERRLA, no scleral icterus.
Neck: supple.
CV: RRR, +S1/S2, no m/r/g.
Resp: CTAB, no rales, wheezes, or rhonchi.
Abd: +BS, soft, NT, ND
Skin: No rashes.
Neuro: CN 2-12 intact, non-focal.
Psych: Normal mood and affect.
Abd U/S 10/16/23:
1. Trace gallbladder sludge without sonographic evidence for discrete gallstones or acute cholecystitis.
CT A/P w/IV+PO 10/16/23:
1. Gallbladder is mildly dilated, with mild gallbladder wall thickening. No radiopaque stones are seen. If there is clinical concern for cholecystitis, abdominal ultrasound may be helpful. Recent abdominal ultrasound dated 10/12/2023 demonstrated no
significant sonographic abnormalities.
2. No evidence of intestinal obstruction, bowel inflammatory process, nephrolithiasis, hydronephrosis, or abscess formation.
Recurrent abdominal pain with N/V:
-afebrile, no leukocytosis, normal lipase, LFTs normal
-Hemodynamically stable
-c/s GI
-clears, advance diet as tolerated
-at this point the etiology of the patient's right upper quadrant abdominal pain could be biliary/gallbladder colic. If GI agrees we may want to consult surgery.
Other problems:
Obesity due to excess calories
Paroxysmal atrial fibrillation: Restart BB. Not on AC [employer].
CAD s/p CABG x 4: Restart BB/statin
DM2: cont Lantus/SSI/accuchecks
Essential HTN: Cont BB, restart ACEi
HLD: restart Statin/Zetia
GERD: Restart PPI
FULL/SCD
Anticipated Discharge: Within 24 hours
Subjective/Interval History
-
Date of Service: October 17, 2023
No new complaints.
Objective Data
-
Labs:
Laboratory Results
10/17/23
05:15
WBC 6.2
Hgb 14.5
Hct 40.6
Plt Count 190
Sodium 139
Potassium 4.0
Chloride 103
Carbon Dioxide 29
BUN 12
Creatinine 0.7
Glucose 94
Calcium 9.1
Total Bilirubin 0.5
AST 26
ALT 39
Alkaline Phosphatase 57
Vital Signs:
Vital Signs
Temp Pulse Resp BP Pulse Ox
97.9 F 55 16 146/58 96
10/16/23 23:24 10/16/23 23:24 10/16/23 23:24 10/16/23 23:24 10/16/23 23:24
I&O
10/16/23 10/17/23 10/18/23
06:59 06:59 06:59
Intake Total 480 / 480
Balance 480 / 480
[2023-10-17] MEDS: SPIRIVA RESPIMAT 2.5 MCG 2 PUFF INH (08:13)
[2023-10-17] MEDS: STRIVERDI RESPIMAT 2 PUFF INH (08:13)
[2023-10-17 08:21] LABS: Glucose - Point of Care 126 mg/dl (70-99)
[2023-10-17] MEDS: NSS 1000 IV (08:38)
[2023-10-17] MEDS: PROTONIX 40 MG PO (08:38)
[2023-10-17] MEDS: LOPRESSOR 50 MG PO ×2 (08:38→20:15)
--- NOTE | 2023-10-17 09:20 | CON.GI ---
Addendum entered and electronically signed by Geo Jay MD 10/17/23 10:46:
Patient seen and examined, agree with nurse practitioner. Patient presents with recurrent right upper quadrant pain. He has had 2 separate episodes over the last several days, described as right upper quadrant pain that radiates to the back,
sometimes worse with eating. He had no fevers, chills, dark urine or light-colored stools. He denies any excessive NSAIDs. He had ultrasound that showed some gallbladder sludge though no obvious stones or signs of acute cholecystitis, though CT
scan with IV and oral contrast did show some mild gallbladder distention and gallbladder wall thickening. On exam he has very minimal right upper quadrant tenderness only with deep palpation no rebound. His ALT was minimally elevated, though no
leukocytosis or fever. At this point given symptoms that could be consistent with biliary colic questionable thickening noted on CT scan with mildly elevated ALT will check HIDA scan. If negative could plan continued outpatient follow-up, last EGD
in 2022 was essentially unremarkable.
Original Note:
Consultation
-
Date/Time Consultation Requested: 10/16/232199
Date/Time Consultation Performed: 10/17/23919
Requesting Provider: Fran Kaiser MD
Performing Provider: LESLEY Pineda, Kobe Rasmussen MD
Reason for Consultation: RUQ pain
Medical History
Chief Complaint / HPI
Chief Complaint: RUQ pain
History of Present Illness:
Pt is a 58yo presents with hx CAD prior CABG, afib on Eliquis, COPD, HTN, hypercholesterolemia, NIDDM, PNA, PUD- NSAID related, reflux esophagitis, colon polyps, aptha ulcer on colonoscopy 2022, with admission to ER 10/15 with new onset RUQ pain
with 2 ER visits last few days. Pt has several recent imaging studies 10/11 US normal, 10/11- CT with limited without oral contrast mild - low density bowel wall thickening with possible transverse colitis without stranding, repeat CT 10/15 with IV
and oral- gallbladder mild dilate with mild GBWT no stone consider US and no obstruction, bowel inflammation, nephrolithiasis or abscess, repeat US 10/15 trace GB sludge without stones or acute cholecystitis. LFT with recent mild ALT elevation with
some elevation prior to onset of pain.
Pt states hx prior pain in past with PUD and some rare bloating and gas pains but current issue started last week with right sided intermittent pain since last night. Pain did radiate to back and associated with nausea and dry heaves.
He was in ER and treated with Augmentin for possible colitis but returned with continued pain after eating pork chops with improved pain today. No NSAID use. Cardiac testing with EKG and trop stable. Pt denies odynophagia, dysphagia, GERD, wt
loss, diarrhea, constipation, blood or black in stools. Hx EGD 2022 with erythema gastric body and duodenal polyp, colon 2022 with diverticulosis, TA polyps and AC aphta ulcer with bx bx focal HP changes. No recent Travel, muscular injury,
abx(other than given in ER after onset for ? colitis), sick contact. May have had change in medication 2 months ago with cardiology.
Past Medical History
Past Medical History: Arrhythmias (afib ), Asthma (bronchitis ), CAD, COPD, HTN, Hypercholesterolemia, NIDDM and Other (PNA, PUD, colon polyps, obesity, aptha ulcer on colonoscopy 2022)
Past Surgical History: Cardiac (CABG)
Social History
Tobacco: Non-Smoker
Alcohol: Occasional
Drug: None
Personal:
Living: With Family
Employment: Employed
Family History
Family History: Other (no family hx colon CA or polyps)
Allergies / Home Medications
Allergy/AdvReac Type Severity Reaction Status Date / Time
No Known Allergies Allergy Verified 10/16/23 10:55
�Medication �Instructions �Recorded
omeprazole 20 mg capsule,delayed 20 mg PO DAILY 04/04/19
release
metformin 500 mg tablet 1,000 mg PO BID 06/18/21
apixaban 5 mg tablet (Eliquis) 5 mg PO BID #60 tabs 02/07/22
metoprolol tartrate 50 mg tablet 50 mg PO BID #60 tabs 02/07/22
(Lopressor)
acetaminophen 325 mg tablet 650 mg PO BIDPRN PRN mild 10/12/23
pain,headache,temp >101F
amoxicillin 875 mg-potassium 1 tab PO BID #20 tabs 10/12/23
clavulanate 125 mg tablet
ascorbic acid (vitamin C) 1,000 mg 1 g PO TID 10/12/23
tablet (Vitamin C)
cholecalciferol (vitamin D3) 25 25 mcg PO TID 10/12/23
mcg (1,000 unit) tablet (Vitamin
D3)
ezetimibe 10 mg tablet 10 mg PO NOON 10/12/23
insulin aspart U-100 100 unit/mL 0 sliding scale dose SC AC 10/12/23
(3 mL) subcutaneous pen (Novolog
FlexPen U-100 Insulin aspart)
insulin glargine 100 unit/mL (3 25 unit SC HS 10/12/23
mL) subcutaneous pen (Lantus
Solostar U-100 Insulin)
omega 6-yfy-svl-fish oil 1,200 mg 2 cap PO BID 10/12/23
(144 mg-216 mg) capsule (Fish Oil)
ramipril 10 mg capsule 10 mg PO NOON 10/12/23
rosuvastatin 40 mg tablet 40 mg PO HS 10/12/23
umeclidinium 62.5 mcg-vilanterol 1 inh inhalation R DAILY 10/12/23
25 mcg/actuation powdr for
inhalation (Anoro Ellipta)
tramadol 50 mg tablet 50 mg PO Q8H PRN moderate pain 10/16/23
Review of Systems
-
History Source: Patient and Family
Constitutional: Reports Weight Loss (few lbs last few days )
EENT: Reports No Symptoms
Respiratory: Reports Trouble Breathing (last PM now improved )
Abdomen/GI: Reports Abdominal Pain (intermittent with radiation to back ) and Nausea (dry heaves )
: Reports No Symptoms
Musculoskeletal: Reports No Symptoms
Vital Signs
Temp Pulse Resp BP Pulse Ox
98.1 F 60 16 145/59 97
10/17/23 07:00 10/17/23 08:38 10/17/23 08:19 10/17/23 08:38 10/17/23 08:19
Physical Exam
Exam
General: Well Developed, Well Nourished and No Apparent Distress
HEENT: Normocephalic and Anicteric
Respiratory: Clear
Cardiac: Regular Rhythm
GI: Soft, Non Tender and Non Distended
Musculoskeletal: No Clubbing and No Cyanosis
Skin: Warm and Dry
Neuro: Awake, Alert and AO x 3
Psych: Calm
Results
WBC 6.2 10^3/uL (4.8-10.8) 10/17/23 05:15
Hgb 14.5 g/dL (13.0-18.0) 10/17/23 05:15
Hct 40.6 % (39.0-52.0) 10/17/23 05:15
MCV 88.5 fL (80.0-94.0) 10/17/23 05:15
Plt Count 190 10^3/uL (130-400) 10/17/23 05:15
Absolute Neuts (auto) 4.0 10^3/uL (1.4-6.5) 10/16/23 11:01
Sodium 139 mmol/L (135-145) 10/17/23 05:15
Potassium 4.0 mmol/L (3.5-5.1) 10/17/23 05:15
Chloride 103 mmol/L (98-107) 10/17/23 05:15
Carbon Dioxide 29 mmol/L (22-30) 10/17/23 05:15
BUN 12 mg/dl (9-20) 10/17/23 05:15
Creatinine 0.7 mg/dL (0.7-1.3) 10/17/23 05:15
Calcium 9.1 mg/dl (8.4-10.2) 10/17/23 05:15
Total Bilirubin 0.5 mg/dl (0.2-1.3) 10/17/23 05:15
AST 26 U/L (17-59) 10/17/23 05:15
ALT 39 U/L (0-50) 10/17/23 05:15
Alkaline Phosphatase 57 U/L (38-126) 10/17/23 05:15
Lipase 72 U/L (23-300) 10/16/23 11:01
Diagnostic Image Results:
10/12/23- US abd normal
10/12/23- CT Abd/Pel (IV only)-DH only
1). Evaluation for bowel pathology is limited by the lack of enteric contrast
There is mild low-density bowel wall thickening in the transverse colon suggesting possible colitis
There are no areas of pericolonic inflammatory stranding.
2). Atherosclerosis
10/16/23 CT Abd/pel W Iv And Oral Contr
1. Gallbladder is mildly dilated, with mild gallbladder wall thickening. No radiopaque stones are seen. If there is clinical concern for cholecystitis, abdominal ultrasound may be helpful. Recent abdominal ultrasound dated 10/12/2023 demonstrated no
significant sonographic abnormalities.
2. No evidence of intestinal obstruction, bowel inflammatory process, nephrolithiasis, hydronephrosis, or abscess formation.
10/16/23 US abd limited
1. Trace gallbladder sludge without sonographic evidence for discrete gallstones or acute cholecystitis.
Prior GI Procedures:
11/2022 [facility] colonoscopy - - Diverticulosis in the sigmoid colon.
- Three 4 to 8 mm polyps in the descending colon,
removed with a cold snare. Resected and retrieved.
- One 5 mm polyp in the ascending colon, removed with
a cold snare. Resected and retrieved.
- Aphtha in the proximal ascending colon. Biopsied.
- Internal hemorrhoids.
bx tubular adenomas and HP polyps
11/2022 [facility] - EGD - Normal esophagus.
- Small hiatal hernia.
- Erythematous mucosa in the gastric body and antrum.
Biopsied.
- Multiple gastric polyps. Biopsied.
- A single duodenal polyp. Resected and retrieved.
bx neg H pylori, garth gland hyperplasia
Assessment / Plan
-
Pt is a 58yo presents with hx CAD prior CABG, afib on Eliquis, COPD, HTN, hypercholesterolemia, NIDDM, PNA, PUD- NSAID related, reflux esophagitis, colon polyps, aptha ulcer on colonoscopy 2022 with admission to ER 10/15 with new onset RUQ pain
with 2 ER visit last few days. Labs stable with minimal ALT elevation. Cardiac testing with EKG and trop stable. No current NSAID use.
10/11 US normal
10/11- CT A/P with limited without oral contrast mild - low density bowel wall thickening with possible transverse colitis without CT 10/15 CT A/P with IV and oral- gallbladder mild dilate with mild GBWT no stone consider US and no obstruction,
bowel inflammation, nephrolithiasis or abscess
10/15 US abdomen limited trace GB sludge without stones or acute cholecystitis.
-RUQ pain with nausea/dry heaves
-minimal ALT elevation
-afib on Eliquis ( last 10/13 prior to admission )
-possible transverse colitis on CT no seen on repeat oral contrast study
other medical problems:
-aptha ulcer on colonoscopy 2022
-hx PUD likely NSAID related
-prior esophagitis
-COPD
-HTN
-hypercholesterolemia
-NIDDM
PLAN:
etiology of RUQ pain related to biliary colic, underlying colitis but follow up imaging stable, muscular vs other
imaging reviewed and also review OP labs with minimal ALT elevation
plan for HIDA scan
NPO
trend labs
NSAID avoidance
Eliquis on hold -last dose 10/14 per patient
updated family at bedside
will follow
-
-
Thank you for consultation and allowing me to participate in the patient's care. Please call the home economics extension worker GI physician during the after hours with any questions or concerns.
[2023-10-17 09:57] LABS: Glycohemoglobin (HgbA1c) 6.4 % (4.0-5.6)
[2023-10-17 11:51] LABS: Glucose - Point of Care 125 mg/dl (70-99)
[2023-10-17] MEDS: ALTACE 10 MG PO (12:07)
[2023-10-17] MEDS: ZETIA 10 MG PO (12:07)
[2023-10-17 15:00] VITALS: BP 142/68
--- NOTE | 2023-10-17 15:21 | W.PN.UPDATE ---
Update Note
Progress Note Update
Hida neg. Pt feeling well. Will advance diet and monitor. If tolerating consider discharge. Reviewed with Dr. Espinoza and nursing staff via tiger text.
--- NOTE | 2023-10-17 15:56 | CM ---
Alert awake oriented patient who lives with his Vandana who lives in a 2 story home with 2 step to enter and 12 steps to bed and bathroom. He is independent in driving and in all activities of daily living.He was offered VN he declined
need.No adaptive devices.Observation letter given . Pt declined to sign letter.
DH VN hx / No SNF history
Pharmacy [facility]
PCP DR Bishop
PLAN Home Declined VN
[2023-10-17 16:03] LABS: Glucose - Point of Care 103 mg/dl (70-99)
[2023-10-17 21:21] LABS: Glucose - Point of Care 205 mg/dl (70-99)
[2023-10-17] MEDS: CRESTOR 40 MG PO (22:01)
[2023-10-17] MEDS: LANTUS 0.100000000000000006 UNITS SC (22:01)
[2023-10-17] MEDS: NSS IV (22:13)
[2023-10-17 23:17] VITALS: BP 135/65
[2023-10-18] MEDS: TYLENOL 650 MG PO (04:17)
[2023-10-18 07:30] VITALS: BP 125/57
[2023-10-18] MEDS: SPIRIVA RESPIMAT 2.5 MCG 2 PUFF INH (08:00)
[2023-10-18] MEDS: STRIVERDI RESPIMAT 2 PUFF INH (08:00)
--- NOTE | 2023-10-18 08:01 | W.PN.GI.CBS2 ---
Today's Communication / Plan
-
Please see assessment and plan for details.
Assessment / Plan
-
1. Right upper quadrant pain: With some positional component, though there was also concern for possible cholecystitis, though no gallstones seen on ultrasound, and HIDA scan was negative, tolerated dinner and breakfast out difficulty. Possibly
more musculoskeletal given radiation to the back. At this point he is okay to DC from a GI standpoint, we will set up office visit in 3 months, he knows to call us with any worsening symptoms prior to that. We will sign off for now, please call
back with any further questions.
Subjective
Subjective
Date of Service: October 18, 2023
Patient feeling okay, no significant pain overnight, tolerated dinner and breakfast no difficulty, no fever or chills, vomiting or diarrhea.
Objective
Data Reviewed
Laboratory Data:
Laboratory Results
10/17/23 05:15
10/17/23 05:15
Laboratory Results
Total Bilirubin 0.5 mg/dl (0.2-1.3) 10/17/23 05:15
AST 26 U/L (17-59) 10/17/23 05:15
ALT 39 U/L (0-50) 10/17/23 05:15
Alkaline Phosphatase 57 U/L (38-126) 10/17/23 05:15
Lipase 72 U/L (23-300) 10/16/23 11:01
Vital Signs and I&O:
Vital Signs
Temp Pulse Resp BP Pulse Ox
98.5 F 54 18 125/57 96
10/18/23 07:30 10/18/23 07:30 10/18/23 07:30 10/18/23 07:30 10/18/23 07:30
I&O
10/17/23 10/18/23 10/19/23
06:59 06:59 06:59
Intake Total 480 / 480 540 / 540
Balance 480 / 480 540 / 540
Physical Exam
Physical Exam
General: NAD
Abdomen: normal bowel sounds, soft, no tenderness, no masses or bruits, no ascites
[2023-10-18 08:04] LABS: Glucose - Point of Care 215 mg/dl (70-99)
--- NOTE | 2023-10-18 08:07 | W.PN.HOSP.TC ---
Today's Communication/Plan
-
d/c
Assessment / Plan
Assessment / Plan
Gen: NAD, AAOx3.
Eyes: EOMI, PERRLA, no scleral icterus.
Neck: supple.
CV: remains RRR, +S1/S2, no m/r/g.
Resp: remains CTAB, no rales, wheezes, or rhonchi.
Abd: remains +BS, soft, NT, ND
Skin: No rashes.
Neuro: CN 2-12 intact, non-focal.
Psych: Normal mood and affect.
Abd U/S 10/16/23:
1. Trace gallbladder sludge without sonographic evidence for discrete gallstones or acute cholecystitis.
CT A/P w/IV+PO 10/16/23:
1. Gallbladder is mildly dilated, with mild gallbladder wall thickening. No radiopaque stones are seen. If there is clinical concern for cholecystitis, abdominal ultrasound may be helpful. Recent abdominal ultrasound dated 10/12/2023 demonstrated no
significant sonographic abnormalities.
2. No evidence of intestinal obstruction, bowel inflammatory process, nephrolithiasis, hydronephrosis, or abscess formation.
HIDA: No scintigraphic evidence of cystic duct or common bile duct obstruction.
Recurrent abdominal pain with N/V:
-afebrile, no leukocytosis, normal lipase, LFTs normal
-Hemodynamically stable
-GI following and case discussed with GI
-possibly MSK
-tolerating diet
Other problems:
Obesity due to excess calories
Paroxysmal atrial fibrillation: Cont BB. Not on AC CLINICAL DATA COORDINATOR.
CAD s/p CABG x 4: Cont BB/statin
DM2: cont Lantus/SSI/accuchecks
Essential HTN: Cont BB/ACEi
HLD: cont Statin/Zetia
GERD: Cont PPI
FULL/SCD
Total time spent on d/c = 31 min. This included today's physical exam, progress note, review of laboratory and diagnostic data, preparation of discharge documents and prescriptions, and discussions about the pt's hospital course and discharge plan
with the patient and other bio medical technician involved in the patient's care.
Anticipated Discharge: Today
Subjective/Interval History
-
Date of Service: October 18, 2023
Denies abd pain, tolerating diet.
Objective Data
-
Vital Signs:
Vital Signs
Temp Pulse Resp BP Pulse Ox
98.5 F 65 16 125/57 97
10/18/23 07:30 10/18/23 08:02 10/18/23 08:02 10/18/23 07:30 10/18/23 08:02
I&O
10/17/23 10/18/23 10/19/23
06:59 06:59 06:59
Intake Total 480 / 480 540 / 540
Balance 480 / 480 540 / 540
[2023-10-18] MEDS: LOPRESSOR 50 MG PO (08:20)
[2023-10-18] MEDS: PROTONIX 40 MG PO (08:20)
--- NOTE | 2023-10-18 09:53 | CM ---
MD entered order for discharge.
Vandana will drive him home.
Offered VN he declined.
PLAN Home no needs
--- NOTE | 2023-10-18 13:35 | W.DCSUMMARY ---
Discharge Summary
Discharge Data
Date of Admission: 10/16/23
Date of Discharge: 10/18/23
-
Pending Results: No
Hospital Course
Primary diagnoses:
Recurrent abdominal pain, possibly musculoskeletal in origin
Secondary diagnoses:
Obesity due to excess calories
Paroxysmal atrial fibrillation
Coronary disease s/p coronary artery bypass grafting x 4
Type 2 diabetes mellitus
Essential hypertension
Hyperlipidemia
Gastroesophageal reflux disease
Consultants:
Gastroenterology
Imaging:
Abd U/S 10/16/23:
1. Trace gallbladder sludge without sonographic evidence for discrete gallstones or acute cholecystitis.
CT A/P w/IV+PO 10/16/23:
1. Gallbladder is mildly dilated, with mild gallbladder wall thickening. No radiopaque stones are seen. If there is clinical concern for cholecystitis, abdominal ultrasound may be helpful. Recent abdominal ultrasound dated 10/12/2023 demonstrated no
significant sonographic abnormalities.
2. No evidence of intestinal obstruction, bowel inflammatory process, nephrolithiasis, hydronephrosis, or abscess formation.
HIDA: No scintigraphic evidence of cystic duct or common bile duct obstruction.
Hospital course: 58-year-old male who presented with recurrent abdominal pain with nausea and vomiting as outlined in the H&P done on admission. Patient was afebrile did not have leukocytosis. His lipase and LFTs were normal. He was
hemodynamically stable. Imaging above. Most notably the patient had a negative HIDA scan. His abdominal pain resolved and he was tolerating a diet at time of discharge. His abdominal pain was possibly musculoskeletal. He was discharged in
medically stable condition.
Discharge Plan
-
Patient Disposition: Home (Routine Discharge)
Discharge Diagnosis/Procedures: Abdominal pain, likely musculoskeletal
Condition: Good
Diet: Diabetic, Carb Controlled
Activity: No restrictions
Driving Restrictions: As prior to admission
Bathing Restrictions: None
Referrals:
Olman Teresa I., DO [Family Provider] - in less than 1 week
Geo Jay MD [Active] - 01/23/24 11:30 am
Prescriptions:
Continued
omeprazole 20 MG capsule,delayed release(DR/EC)
20 mg PO DAILY
metformin 500 MG tablet
1,000 mg PO BID
Eliquis 5 mg tablet
5 mg PO BID Qty: 60 0RF
metoprolol tartrate [Lopressor] 50 mg tablet
50 mg PO BID Qty: 60 0RF
ascorbic acid (vitamin C) [Vitamin C] 1,000 mg Tablet
1 g PO TID
ramipril 10 mg Capsule
10 mg PO NOON
ezetimibe 10 mg Tablet
10 mg PO NOON
insulin aspart U-100 [Novolog FlexPen U-100 Insulin] 100 unit/mL (3 mL) Insulin Pen
0 sliding scale dose SC AC
Patient Comments:
10/12/23: patient unsure of sliding scale
rosuvastatin 40 mg Tablet
40 mg PO HS
cholecalciferol (vitamin D3) [Vitamin D3] 25 mcg (1,000 unit) Tablet
25 mcg PO TID
insulin glargine [Lantus Solostar U-100 Insulin] 100 unit/mL (3 mL) Insulin Pen
25 unit SC HS
omega 2-[id number]-[id number] oil [Fish Oil] 1,200 (144-216) mg Capsule
2 cap PO BID
Anoro Ellipta 62.5-25 mcg/actuation Blister With Device
1 inh INHALATION R DAILY
acetaminophen 325 MG tablet
650 mg PO BIDPRN PRN (Reason: mild pain,headache,temp >101F )
tramadol 50 mg tablet
50 mg PO Q8H PRN (Reason: moderate pain)
Patient Comments:
10/16/2023: last filled 10/12/23, 7 tabs for 3 days from [facility][id number]
Discontinued
amoxicillin-pot clavulanate 875-125 mg tablet
1 tab PO BID Qty: 20 0RF
Discharge Orders:
Discharge Patient (As Directed); Ordered 10/18/23
Ordered By: Henrry Espinoza
Discharge Date and Time
Discharge Date/Time: 10/18/23 10:00
Print Language: BELARUSIAN
== END 2023-10-18 10:00 | disposition home or self-care (01) ==
LOC: 3 WEST ACU 19:59
PROVIDERS: Emergency Medicine; ADMITTING PHYSICIAN Internal Medicine; ATTENDING PHYSICIAN Internal Medicine; CONSULT PHYSICIAN Internal Medicine Gastroenterology; EMERGENCY PHYSICIAN Emergency Medicine; FAMILY PHYSICIAN Internal Medicine
DX: R07.9 Chest pain, unspecified (principal); R10.11 Right upper quadrant pain; R10.13 Epigastric pain; R11.2 Nausea with vomiting, unspecified; K82.8 Other specified diseases of gallbladder; I10 Essential (primary) hypertension; I48.0 Paroxysmal atrial fibrillation; E66.09 Other obesity due to excess calories; J44.9 Chronic obstructive pulmonary disease, unspecified; I25.10 Atherosclerotic heart disease of native coronary artery without angina pectoris; E11.9 Type 2 diabetes mellitus without complications; K21.00 Gastro-esophageal reflux disease with esophagitis, without bleeding; E78.5 Hyperlipidemia, unspecified; E78.00 Pure hypercholesterolemia, unspecified; Z87.11 Personal history of peptic ulcer disease; Z87.01 Personal history of pneumonia (recurrent); Z87.891 Personal history of nicotine dependence; Z95.1 Presence of aortocoronary bypass graft; Z79.84 Long term (current) use of oral hypoglycemic drugs; Z79.01 Long term (current) use of anticoagulants; Z87.19 Personal history of other diseases of the digestive system; Z79.4 Long term (current) use of insulin; Z68.30 Body mass index [BMI] 30.0-30.9, adult
CPT/HCPCS: 74177; 76705; 78226; 80053; 82962; 83036; 83690; 84484; 85025; 85027; 93005; 94640; 96374; 96375; 99285; A9537; G0378; Q9967

== ENCOUNTER → 2024-08-12 14:21 | Outpatient (REF) | payer OTHER, SELFPAY | LOC: HWRAD 14:21 | PROVIDERS: ATTENDING PHYSICIAN Internal Medicine Critical Care Medicine; FAMILY PHYSICIAN Internal Medicine | DX: Z87.891 Personal history of nicotine dependence (principal) | CPT/HCPCS: 71271 ==